=== PATIENT | female | born 1980 ===

== ENCOUNTER 2022-03-12 09:58 | Emergency (ER) | payer BC ==
[2022-03-12] MEDS ORDERED: Sodium Chloride 0.9% 10 ML Syringe FLUSH PRN (10:37)
[2022-03-12 11:55] LABS: ESTIMATED GFR 55 mL/min (>60)
== END 2022-03-12 12:30 | disposition home or self-care (01) ==
LOC: JD.ED 09:58
DX: R00.2 Palpitations (principal); Z79.899 Other long term (current) drug therapy; Z90.49 Acquired absence of other specified parts of digestive tract
CPT/HCPCS: 36415; 71045; 80053; 81001; 83735; 84443; 84484; 85025; 85379; 93225; 93226; 99285; J3490